=== PATIENT | female | born 1965 | race Two or more races ===

== ENCOUNTER 2016-06-28 17:53 | Emergency (ER) | payer OTHER ==
[2016-06-28] MEDS ORDERED: IBUPROFEN 800 MG TABLET ONE (21:04)
[2016-06-28] MEDS ORDERED: HYDROCODONE/ACETAMINOPHEN 5/325MG TABLET ONE (21:04)
[2016-06-28] MEDS ORDERED: DIAZEPAM 5 MG TABLET ONE ×2 (21:05)
== END 2016-06-28 21:23 | disposition home or self-care (01) ==
LOC: ED 17:53
DX: M54.6 Pain in thoracic spine (principal)
CPT/HCPCS: 99283 ×2; A9270 ×4